=== PATIENT | male | born 1960 | race Caucasian/White ===

== ENCOUNTER 2016-11-02 10:55 | Inpatient (IN) | payer BC, OTHER ==
[~2016-11-02] VITALS: Ht 172.7 cm; Wt 91.6 kg
[~2016-11-02 10:55] MED LIST: Acetaminophen PO; Baclofen PO; DICY20TA28 PO; DULO60CA45 PO; GABA-534 PO; LIDO30AD10 TD; MULT-24 PO; PANT40TA2 PO; PRAV40TA3 PO; TRAZ-147 PO
[2016-11-03] MEDS ORDERED: LORAZEPAM 1 MG TABLET PO PRN ×2 (15:15)
[2016-11-03] MEDS ORDERED: CLONIDINE HCL 0.1 MG TABLET PO PRN (15:15)
[2016-11-03] MEDS ORDERED: DICYCLOMINE HCL 20 MG TABLET PO PRN (15:15)
[2016-11-03] MEDS ORDERED: LORAZEPAM 2 MG/1 ML VIAL IM PRN (15:15)
[2016-11-03] MEDS ORDERED: MAGNESIUM HYDROXIDE 30 ML LIQUID UDC PO PRN (15:15)
[2016-11-03] MEDS ORDERED: MIRALAX 17 GM POWD.PACK PO PRN (15:15)
[2016-11-03] MEDS ORDERED: diphenhydrAMINE 50 MG CAPSULE PO PRN (15:15)
[2016-11-03] MEDS ORDERED: ACETAMINOPHEN 325 MG TABLET PO PRN (15:15)
[2016-11-03] MEDS ORDERED: MAG HYDROX/AL HYDROX/SIMETH 30 ML LIQUID UDC PO PRN (15:15)
[2016-11-03] MEDS ORDERED: THIAMINE HCL 200 MG/2 ML VIAL IM ONE (15:15)
[2016-11-03] MEDS ORDERED: BUPRENORPHINE HCL 2 MG TAB.SUBL SL PRN (15:15)
[2016-11-03 16:38] LABS: *AMPHETAMINE, URINE NEGATIVE (NEGATIVE); *BARBITURATE, URINE NEGATIVE (NEGATIVE); *CANNABINOID, URINE NEGATIVE (NEGATIVE); *COCCAINE, URINE NEGATIVE (NEGATIVE); *OPIATE, URINE NEGATIVE (NEGATIVE); *PHENCYCLIDINE SCREEN,URINE NEGATIVE (NEGATIVE)
[2016-11-03 17:00] VITALS: BP 100/63
--- NOTE | 2016-11-03 17:00 | NUR ---
IV insertion 22G peripheral line inserted into R AC, rapid blood return noted, x 1 attempt, pt tolerated well.
[2016-11-03] MEDS: IV NS 1000 ML 1,000 ML IV SCH (17:12)
[2016-11-03 17:17] LABS: BASOPHILS % (AUTO) 0.3 % (0.0-2.0); EOSINOPHILS # (AUTO) 0.1 K/uL (0.0-0.7); EOSINOPHILS % (AUTO) 1.7 % (0.0-7.0); HEMATOCRIT 41.1 % (40.0-50.0); HEMOGLOBIN 13.8 g/dL (14.0-18.0); LYMPHOCYTES # (AUTO) 2.8 K/uL (0.8-4.8); LYMPHOCYTES % (AUTO) 32.6 % (20.5-51.5); MEAN CORPUSCULAR HEMOGLOBIN 32.6 uug (27.0-31.0); MEAN CORPUSCULAR HGB CONC 34 g/dL (32.0-37.0); MEAN CORPUSCULAR VOLUME 96.6 fL (82.0-92.0); MONOCYTES # (AUTO) 0.3 K/uL (0.1-1.30); MONOCYTES % (AUTO) 4.1 % (0.0-11.0); NEUTROPHILS # (AUTO) 5.3 K/uL (1.8-8.9); NEUTROPHILS % (AUTO) 61.3 % (38.5-71.5); PLATELET COUNT (AUTO) 321 K/uL (150-450); RED BLOOD CELL COUNT(AUTO) 4.25 MIL/uL (4.70-6.10); WHITE BLOOD COUNT (AUTO) 8.5 K/uL (4.0-11.2)
--- NOTE | 2016-11-03 17:30 | NUR ---
Admission Note VS: BP: 100/63 HR:104, SpO2: 97%, RR: 16, Temp: 98.1 Pain: 5/10 Left Leg Height: 5'8" Weight: 202 LB Allergies: LEIGH Pt is a 56 y/o male admitted to [facility] on 11/03/16 at 1530. Pt is under the care of Dr. Connell for alcohol dependence. Pt denies suicidal and homicidal ideations at this time. Pt denies being hospitalized in the past 30 days. Pt denies Chest Pain and SOB. Pt reports using Imodium daily for diarrhea. Upon assessment pt's skin is intact. CIWA 5 upon admission. NKA, A/Ox4 and able to answer questions necessary for the admission process. Pt is Full Code. VS WNL, Regular Diet. Pt denies having seizures. Pt denies having a PCP. Breathing is even and unlabored, SpO2 is 97% on RA. Pt ambulates with a steady gait, pt reports feeling very tired. Pt states experiencing diarrhea for the last 3 weeks likely due to heavy drinking. Pt smokes approximately 1 pack of cigarettes a day.. Dr. Connell has been notified, and has placed client on 120ml/hr 0.9% NA. PT has a 22g IV on left wrist. All needs have been met. Pt has been oriented to the room and the unit. All safety measures in place per hospital policy. Bed in lowest position, side rails up x2 and padded, call-light within reach. Will continue to monitor. Substance Abuse: Alcohol: 350-400ml vodka and 2-3 Nasir's hard lemonade daily for 6 weeks. Last Use: 11/03/16 250ml vodka and 1 Nasir's hard lemonade.
[2016-11-03 17:43] LABS: ALBUMIN 3.9 g/dL (3.4-5.0); BILIRUBIN,TOTAL 0.5 mg/dL (0.2-1.0); POTASSIUM 3.2 mmol/L (3.5-5.1); TOTAL PROTEIN, SERUM 7.8 g/dL (6.4-8.2)
[2016-11-03 17:56] LABS: CREATININE 1.4 mg/dL (0.6-1.3); MAGNESIUM 0.8 mg/dL (1.8-2.4)
[2016-11-03 17:57] LABS: THYROID STIMULATING HORMONE 5.142 mIU/mL (0.358-3.740)
[2016-11-03] MEDS ORDERED: BACLOFEN 20 MG TABLET PO PRN (18:15)
[2016-11-03] MEDS ORDERED: POTASSIUM CHLORIDE 10 MEQ CAPSULE.SA PO ONE (18:15)
[2016-11-03] MEDS ORDERED: MAGNESIUM OXIDE 400 MG TABLET PO ONE (18:15)
[2016-11-03] MEDS: PANTOPRAZOLE SODIUM 40 MG VIAL IV SCH (18:27)
[2016-11-03] MEDS: MAGNESIUM SULFATE/D5W 100 ML IV SCH ×4 (18:30→22:37)
[2016-11-03 18:34] LABS: HIV-1 p24 ANTIGEN NON REACTIVE (NONREACTIVE); HIV-1/2 ANTIBODY NON REACTIVE (NONREACTIVE)
[2016-11-03] MEDS: ONDANSETRON ODT 4 MG TAB.RAPDIS SL PRN (18:38)
--- NOTE | 2016-11-03 18:38 | NUR ---
PRN Zofran Pt reports nausea, administered Zofran, will re-assess.
--- NOTE | 2016-11-03 19:35 | NUR ---
End of Shift Endorsement given to nightshift nurse. Pt is a 56 y/o male admitted to [facility] on 11/03/16 at 1530. Pt has received PRN Zofran for nausea. Pt is under the care of Dr. Connell for alcohol dependence. Pt denies suicidal and homicidal ideations at this time. Pt denies being hospitalized in the past 30 days. Pt denies Chest Pain and SOB. Pt reports using Imodium daily for diarrhea. Upon assessment pt's skin is intact. CIWA 5 upon admission. NKA, A/Ox4 and able to answer questions necessary for the admission process. Pt is Full Code. VS WNL, Regular Diet. Pt denies having seizures. Pt denies having a PCP. Breathing is even and unlabored, SpO2 is 97% on RA. Pt ambulates with a steady gait, pt reports feeling very tired. Pt states experiencing diarrhea for the last 3 weeks likely due to heavy drinking. Pt smokes approximately 1 pack of cigarettes a day.. Dr. Connell has been notified, and has placed client on 120ml/hr 0.9% NA. PT has a 22g IV on left wrist. All needs have been met. Pt has been oriented to the room and the unit. All safety measures in place per hospital policy. Bed in lowest position, side rails up x2 and padded, call-light within reach. Will continue to monitor.
[2016-11-03 20:00] VITALS: BP 94/67
--- NOTE | 2016-11-03 20:00 | NUR ---
Start of Shift Pt is a 56 year old male admitted on 11/03/2016 for ETOH dependence, placed on 5 Ativan taper to be started tomorrow. Pt reported consuming 350-400ml vodka and 2-3 Nasir's hard lemonade daily for 6 weeks. Last intake on 11/03/16 250ml vodka and 1 Nasir's hard lemonade. NKA, regular diet, fall/seizure precautions denies hx of seizures and full code. Denies PMH. Pt has 22g IV on right AC, patient/ intact, flushing well. Magnesium running at 100mls/hr and IV Sodium Chloride 0.9% running at 120ml/hr [id number]. Abdominal US ordered pt is NPO after midnight. Respirations unlabored, denies SOB/Chest pain, skin, wart/moist/intact, pt reported episodes of diarrhea stool culture ordered. Safety measures in place, call light within reach, side rails up x2, bed locked and in low position. Will continue to monitor.
[2016-11-03] MEDS: GABAPENTIN 300 MG CAPSULE PO SCH (20:46)
[2016-11-03] MEDS ORDERED: ONDANSETRON 4 MG/2 ML VIAL IV PRN (21:00)
[2016-11-03] MEDS: METHOCARBAMOL 750 MG TABLET PO PRN (22:48)
--- NOTE | 2016-11-03 22:48 | NUR ---
PRN Administration 2247 CIWA 12 - pt is tremulous, shaky, obvious sweat noted, skin flushed/clammy, reports feeling anxiety, pins/needles sensation, reports headache, and muscle aches throughout body. Ativan 1mg PRN, Motrin 600mg PRN and Robaxin 750mg PRN administered. Safety measures in place, call light within reach, side rails up x2, bed locked and in low position. Will continue to monitor.
[2016-11-03] MEDS: IBUPROFEN 600 MG TABLET PO PRN (22:54)
[2016-11-04] VITALS: BP 99/69
[2016-11-04] MEDS ORDERED: TRAZODONE 50 MG TABLET PO ONE
--- NOTE | 2016-11-04 | NUR ---
Vital Signs - PRN Reassessment/Administration Upon reassessment, Ativan 1mg PRN ineffective, pt presents with moderate/increased tremors/shakiness, obvious sweat/clammy skin, moderate pin/needles sensations, visual sensitivity as reported by pt, reports headache, mild muscle aches. CIWA 15 BP99/69, pulse 108, respirations 20, SpO2 97%, temp 98, muscle aches/pain rated 4/10 Ativan 2mg PRN administered. Trazodone 50mg x1 administered for sleep. Safety measures in place, call light within reach, side rails up x2, bed locked and in low position. Will continue to monitor. Addendum: 11/04/16 at 0341 by RENEA ROBLEDO RN CORRECTION - CIWA 16
[2016-11-04] MEDS ORDERED: TRAZODONE 50 MG TABLET ONE (00:15)
[2016-11-04] MEDS: IV NS 1000 ML 1,000 ML IV SCH ×2 (00:35→09:29)
--- NOTE | 2016-11-04 01:00 | NUR ---
PRN Reassessment Upon reassessment of Ativan 2mg PRN, pt is sleeping, respirations even and unlabored. Unable to reassess CIWA score d/t pt sleeping. Safety measures in place, Will continue to monitor.
--- NOTE | 2016-11-04 04:00 | NUR ---
Pt refused to be woken up for 0400 VS CIWA assessment deferred d/t pt sleeping Safety measures in place, call light within reach, side rails up x2, bed locked and in low position. Will continue to monitor.
--- NOTE | 2016-11-04 07:00 | NUR ---
End of Shift Pt is a 56 year old male admitted on 11/03/2016 for ETOH dependence, placed on 5 Ativan taper to be started today. Pt reported consuming 350-400ml vodka and 2-3 Nasir's hard lemonade daily for 6 weeks. Last intake on 11/03/16 250ml vodka and 1 Nasir's hard lemonade. NKA, regular diet, fall/seizure precautions denies hx of seizures and full code. Denies PMH. Pt has 22g IV on right AC, patient/ intact, flushing well. Magnesium Sulfate/D5W 100ml at 100mls/hr completed 4 bags infused. Pt continues on IV NS 1000ml at 120 mls/hr [id number]. At 2248, pt presented with a CIWA 12 tremulous, shaky, obvious sweat, skin flushed/clammy, reports feeling anxiety, pins/needles sensations, reported headache and muscle aches throughout body Ativan 1mg PRN administered along with Robaxin 750mg PRN, Motrin 600mg PRN. Upon reassessment, Ativan 1mg PRN ineffective, pt presented with moderate/increased tremors/shakiness, obvious sweat/clammy skin, moderate pin/needles sensations, visual sensitivity as reported by pt, CIWA 16. Ativan 2mg PRN administered along with Trazodone 50mg x1 at 0000. Upon reassessment, pt was noted to be sleeping respirations even and unlabored. Abdominal US ordered pt is NPO after midnight. Pt reported episodes of diarrhea stool culture ordered. Pt slept for 6hours, intake of 1043 ml Po and voids x3. Safety measures in place, call light within reach, side rails up x2, bed locked and in low position. Endorsed to day shift nurse.
--- NOTE | 2016-11-04 07:06 | NUR ---
Start of Shift Endorsement received from nightshift nurse. Pt is a 56 y/o male admitted for alcohol dependence. Pt has been placed on a 5 day Ativan taper. Pt is severely withdrawing at this time AEB CIWA 16. Pt has received PRN Ativan x2, Robaxin, Motrin and Trazodone during nightshift. Pt has slept 8 hours. Pt has a 22g IV in the right AC, receiving NS at 120ml/hr. VS WNL, Full Code. PT is alert and oriented x4. Pt is in STABLE condition at this time. Remains compliant with medication and diet regimen. All needs have been met, All safety measures in place per hospital policy. Bed in lowest position, side rails up x2, call-light within reach. Will continue to monitor
[2016-11-04 07:37] LABS: BASOPHILS % (AUTO) 0.3 % (0.0-2.0); EOSINOPHILS # (AUTO) 0.1 K/uL (0.0-0.7); EOSINOPHILS % (AUTO) 1.8 % (0.0-7.0); HEMATOCRIT 33.6 % (40.0-50.0); HEMOGLOBIN 11.3 g/dL (14.0-18.0); LYMPHOCYTES # (AUTO) 1.9 K/uL (0.8-4.8); LYMPHOCYTES % (AUTO) 30.4 % (20.5-51.5); MEAN CORPUSCULAR HGB CONC 34 g/dL (32.0-37.0); MONOCYTES # (AUTO) 0.3 K/uL (0.1-1.30); MONOCYTES % (AUTO) 4.5 % (0.0-11.0); NEUTROPHILS # (AUTO) 3.9 K/uL (1.8-8.9); PLATELET COUNT (AUTO) 199 K/uL (150-450); RED BLOOD CELL COUNT(AUTO) 3.43 MIL/uL (4.70-6.10); RED CELL DISTRIBUTION WIDTH 17.8 % (11.5-14.5); WHITE BLOOD COUNT (AUTO) 6.2 K/uL (4.0-11.2)
[2016-11-04 08:00] VITALS: BP 117/73
[2016-11-04 08:19] LABS: ALBUMIN 2.9 g/dL (3.4-5.0); BILIRUBIN,DIRECT 0.1 mg/dL (0.0-0.2); BILIRUBIN,TOTAL 0.4 mg/dL (0.2-1.0); CALCIUM 8.4 mg/dL (8.5-10.1); CREATININE 1.2 mg/dL (0.6-1.3); MAGNESIUM 2.6 mg/dL (1.8-2.4); PHOSPHOROUS 4.7 mg/dL (2.5-4.9); POTASSIUM 3.9 mmol/L (3.5-5.1); TOTAL PROTEIN, SERUM 5.9 g/dL (6.4-8.2)
[2016-11-04] MEDS ORDERED: TUBERCULIN,PURIF.PROT.DERIV. 5 TU/0.1 ML TEST ID ONE (09:00)
[2016-11-04] MEDS: LORAZEPAM 1 MG TABLET PO SCH ×4 (09:28→21:06)
[2016-11-04] MEDS: THIAMINE HCL 100 MG TABLET PO SCH (09:29)
[2016-11-04] MEDS: PANTOPRAZOLE SODIUM 40 MG VIAL IV SCH (09:29)
[2016-11-04] MEDS: GABAPENTIN 300 MG CAPSULE PO SCH ×3 (09:29→21:06)
[2016-11-04] MEDS: MULTIVITAMINS,THERAPEUTIC TABLET PO SCH (09:29)
[2016-11-04] MEDS: FOLIC ACID 1 MG TABLET PO SCH (09:29)
[2016-11-04] MEDS: LIDOCAINE 5% PATCH TD SCH (09:29)
[2016-11-04] MEDS ORDERED: IV NORMAL SALINE 500 ML IV ONE (14:00)
[2016-11-04] MEDS: DULOXETINE 60 MG CAPSULE.DR PO SCH (14:53)
[2016-11-04] MEDS ORDERED: IV NS 1000 ML 1,000 ML IV PRN (15:00)
[2016-11-04 16:39] VITALS: BP 120/78
[2016-11-04] MEDS: LOPERAMIDE HCL 2 MG CAPSULE PO PRN ×2 (17:16→21:07)
--- NOTE | 2016-11-04 18:41 | NUR ---
End of Shift Endorsement given to nightshift nurse. Pt is a 56 y/o male admitted to [facility] for alcohol dependence. Pt has begun a 5 day Ativan taper. Pt is tolerating the taper and moderately withdrawing AEB COWS 9. Pt has a 22g saline lock in R wrist, pt has received 1500ml of NS during the shift. Pt has not received any PRN medications. Stool sample has been collected and sent to the lab for suspected c-diff. Pt had an abdominal performed in the morning, Dr. Connell is aware of the results. Pt has spent the day in bed sleeping. Pt is alert and oriented x4, responsive to name and touch. Intake: 2590ml, Void x3, BM x1. Remains compliant with medication and diet regimen. All needs have been met, All safety measures in place per hospital policy. Bed in lowest position, side rails up x2, call-light within reach. Will continue to monitor
[2016-11-04 20:00] VITALS: BP 127/83
--- NOTE | 2016-11-04 20:00 | NUR ---
Start of shift note: Patient is a 56 y/o male admitted on 11/03/16 for ETOH dependence. Pt reported consuming 350-400ml vodka and 2-3 Nasir's hard lemonade daily for 6 weeks. Patient is on a regular diet with no known food and drug allergies. Full Code status. Patient denies pas medical history. No seizure history noted. Fall precautions noted. Patient is on a 5-day Ativan taper and tolerating well. Last CIWA is 6. Pt was given PRN Immodium during day shift for diarrhea. Pt has IV access 22 gauge on his right AC with running NS @ 120ml/hr. IV patent and flushes with no problems. No complaints of pain/discomfort at site. Patient is alert & oriented x4. No shortness of breath noted. Respiration even & unlabored. Abdomen soft & non-distended. Slight nausea noted. No episode of vomiting noted. Patient complains of slight body aches and 8/10 headache. Patient noted with bilateral hand tremors. Pt complains of chills & sweating. Mild visual sensitivity noted. Patient denies SI/HI. Safety precautions are in place. Bed locked in lowest position. Both side rails up. Call light within pts reach. Will continue to monitor patient.
[2016-11-04] MEDS: IBUPROFEN 600 MG TABLET PO PRN (21:06)
[2016-11-04] MEDS: TRAZODONE 100 MG TABLET PO SCH (21:07)
--- NOTE | 2016-11-04 23:56 | NUR ---
Ativan 2mg onetime order Patient noted with gross tremors. Pateint appears anxious and restless. Nausea noted. No episode of vomiting. CIWA [address] Connell notified with new orders noted. Ativan 2mg PO administered as ordered. Will reassess in 1 hour. Will continue to monitor. Addendum: 11/05/16 at 0544 by RIA TIERNEY RN vitals signs taken B/P 137/90, MA 97, RR 16, O2Sat 95%
[2016-11-05] VITALS: BP 137/90
[2016-11-05] MEDS ORDERED: LORAZEPAM 1 MG TABLET PO ONE
--- NOTE | 2016-11-05 00:56 | NUR ---
Reassessment Patient appears less anxious with decreased tremors noted. Patient verbalized PRN medication is effective in controlling withdrawals evidenced by decreases in CIWA scores from 11 to 6. Safety precautions are in place. Will continue to monitor patient.
--- NOTE | 2016-11-05 07:05 | NUR ---
Start of Shift Endorsement received from nightshift nurse. Pt is a 56 y/o male admitted for alcohol dependence. Pt has been placed on a 5 day Ativan taper. Pt is moderately withdrawing at this time AEB CIWA 6 at 0100. Pt has received PRN Ativan for CIWA of 12, Imodium for reported diarrhea and Motrin for headache during nightshift. Pt has slept 4 hours, going out to smoke several times during the night. Pt has a 22g IV in the right AC, receiving NS at 125ml/hr, pt has received 500ml NS during the night. VS WNL, Full Code. PT is alert and oriented x4. Pt is in STABLE condition at this time. Remains compliant with medication and diet regimen. All needs have been met, All safety measures in place per hospital policy. Bed in lowest position, side rails up x2, call-light within reach. Will continue to monitor
--- NOTE | 2016-11-05 07:37 | NUR ---
END OF SHIFT NOTE: Pt is stable. Pt still has IV access on right AC with running NS @ 125 cc/hr. IV access patent and flushes easily. Pt had an episode of diarrhea and was given PRN Immodium. No episode noted after medication was given. Pt is in contact isolation for possible C-diff. Contact precaution observed. At 2356, pt started withdrawing with CIWA 11 noted. Ativan 2mg x1 given as ordered and was effective. Pt reported that medication was effective in controlling his withdrawal symptoms as evident by decreased of CIWA scores from 11 to 6. Pt still asleep at this time and vitals remains WNL. Pt slept for a total of 5 hours. Pt consumed 1350ml of fluids. Voided 1x with no bowel movement. All needs attended & met. Safety precautions are in place. Will endorse pt to day shift nurse.
[2016-11-05 08:00] VITALS: BP 109/60
[2016-11-05 08:08] LABS: BASOPHILS % (AUTO) 0.2 % (0.0-2.0); EOSINOPHILS # (AUTO) 0.1 K/uL (0.0-0.7); HEMATOCRIT 30.4 % (40.0-50.0); HEMOGLOBIN 10.3 g/dL (14.0-18.0); LYMPHOCYTES # (AUTO) 1.6 K/uL (0.8-4.8); MEAN CORPUSCULAR HEMOGLOBIN 33.6 uug (27.0-31.0); MEAN CORPUSCULAR HGB CONC 34 g/dL (32.0-37.0); MEAN CORPUSCULAR VOLUME 99.2 fL (82.0-92.0); MONOCYTES # (AUTO) 0.2 K/uL (0.1-1.30); MONOCYTES % (AUTO) 4.3 % (0.0-11.0); NEUTROPHILS # (AUTO) 3.3 K/uL (1.8-8.9); NEUTROPHILS % (AUTO) 63.5 % (38.5-71.5); PLATELET COUNT (AUTO) 165 K/uL (150-450); RED BLOOD CELL COUNT(AUTO) 3.06 MIL/uL (4.70-6.10); RED CELL DISTRIBUTION WIDTH 17.4 % (11.5-14.5); WHITE BLOOD COUNT (AUTO) 5.2 K/uL (4.0-11.2)
[2016-11-05 08:24] LABS: ALBUMIN 2.5 g/dL (3.4-5.0); BILIRUBIN,DIRECT 0.1 mg/dL (0.0-0.2); BILIRUBIN,TOTAL 0.3 mg/dL (0.2-1.0); CREATININE 1.1 mg/dL (0.6-1.3); PHOSPHOROUS 3.6 mg/dL (2.5-4.9); POTASSIUM 3.9 mmol/L (3.5-5.1); TOTAL PROTEIN, SERUM 5.3 g/dL (6.4-8.2)
[2016-11-05] MEDS: GABAPENTIN 300 MG CAPSULE PO SCH ×3 (08:35→20:56)
[2016-11-05] MEDS: DULOXETINE 60 MG CAPSULE.DR PO SCH (08:35)
[2016-11-05] MEDS: THIAMINE HCL 100 MG TABLET PO SCH (08:35)
[2016-11-05] MEDS: LORAZEPAM 1 MG TABLET PO SCH ×3 (08:35→20:56)
[2016-11-05] MEDS: MULTIVITAMINS,THERAPEUTIC TABLET PO SCH (08:35)
[2016-11-05] MEDS: PANTOPRAZOLE SODIUM 40 MG VIAL IV SCH (08:35)
[2016-11-05] MEDS: FOLIC ACID 1 MG TABLET PO SCH (08:35)
[2016-11-05] MEDS: LIDOCAINE 5% PATCH TD SCH (08:58)
[2016-11-05 12:00] VITALS: BP 115/63
[2016-11-05] MEDS: LOPERAMIDE HCL 2 MG CAPSULE PO PRN ×2 (13:32→17:22)
--- NOTE | 2016-11-05 13:32 | NUR ---
PRN Imodium Pt reports having diarrhea, administered Imodium 2mg.
[2016-11-05 14:13] LABS: HCV AB <0.1 s/co ratio (0.0-0.9); HEPATITIS B CORE AB, IgM Negative (Negative); HEPATITIS B SURFACE AG Negative (Negative)
[2016-11-05 16:00] VITALS: BP 120/68
--- NOTE | 2016-11-05 16:30 | NUR ---
IV Discontinued IV discontinued and removed at [address] Connell.
--- NOTE | 2016-11-05 17:22 | NUR ---
PRN Imodium Pt reports experiencing another episode of diarrhea, administered Imodium 4mg per Dr. Connell.
--- NOTE | 2016-11-05 19:02 | NUR ---
End of Shift Endorsement given to nightshift nurse. Pt is a 56 y/o male admitted to [facility] for alcohol dependence. Pt has begun a 5 day Ativan taper. Pt is tolerating the taper and mildly withdrawing AEB COWS 4, CIWA 2 at 1600. IV has been discontinued and removed at [address] Connell. Pt encouraged to take a shower due to experiencing multiple episodes of diarrhea. Educated on hygiene and dangers of skin breakdown. Pt has received Imodium x2 due to diarrhea. Pt reports readiness for sobriety. Participated in groups and activities. Stool sample results are negative for c-diff. Intake: 1142ml, Void x5, BM x5. Pt is alert and oriented x4, responsive to name and touch. Intake: 2590ml, Void x3, BM x1. Remains compliant with medication and diet regimen. All needs have been met, All safety measures in place per hospital policy. Bed in lowest position, side rails up x2, call-light within reach. Will continue to monitor
--- NOTE | 2016-11-05 19:15 | NUR ---
Start of shift note: Patient is a 56 y/o male admitted on 11/03/16 for ETOH dependence. Pt reported consuming 350-400ml vodka and 2-3 Nasir's hard lemonade daily for 6 weeks. Patient is on a regular diet with no known food and drug allergies. Full Code status. Patient denies past medical history. No seizure history noted. Fall precautions noted. Patient is on a 5-day Ativan taper and tolerating well. Last COWS 4 CIWA 2 noted. Pt was given PRN Immodium x2 during day shift for diarrhea. C-diff result came back negative. Contact isolation was discontinued. IV access was also discontinued as ordered. Patient remained stable. Patient is alert & oriented x4. No shortness of breath noted. Respiration even & unlabored. Abdomen soft & non-distended. Bowel sounds active in all four quadrants. Pt c/o of nausea. No episode of vomiting noted. Patient c/o of 5/10 body aches, sweating, chills and mild headache. Pt still noted with bilateral hand tremors. Pt verbalized that and hour ago while in the meeting that he was seeing things in the corner of his eye and thought somebody was talking to him. Pt oriented to reality. Safety precautions are in place. Bed locked in lowest position. Both side rails up. Call light within pts reach. Will continue to monitor.
[2016-11-05 20:00] VITALS: BP 122/83
[2016-11-05] MEDS: IBUPROFEN 600 MG TABLET PO PRN (20:56)
--- NOTE | 2016-11-05 20:56 | NUR ---
PRN Motrin & Zofran Patient complains of 5/10 body aches, mild headache and nausea. No episode of vomiting noted. Patient is restless. No facial grimacing noted. PRN Motrin given as ordered. Will reassess for effectiveness of medication.
[2016-11-05] MEDS: ONDANSETRON ODT 4 MG TAB.RAPDIS SL PRN (20:57)
--- NOTE | 2016-11-05 21:56 | NUR ---
PRN Reassessment PRn medication effective. Pt verbalized relief from pain and improved nausea noted. Pt lying in bed and appears calm and comfortable. Will continue to monitor patient.
[2016-11-05] MEDS: TRAZODONE 100 MG TABLET PO SCH (23:57)
--- NOTE | 2016-11-05 23:57 | NUR ---
late medication administration Patient refused to take Trazodone at 2100 as scheduled. Per pt, he is not yet ready to sleep and he will take it at a later time. Trazodone 100mg administered at this time. Pt is stable and vitals WNL. No s/s of distress noted. Will continue to monitor.
[2016-11-06] VITALS: BP 132/72
[2016-11-06 04:00] VITALS: BP 94/53
[2016-11-06] MEDS: PANTOPRAZOLE SODIUM 40 MG TABLET.DR PO SCH (07:07)
--- NOTE | 2016-11-06 07:13 | NUR ---
END OF SHIFT NOTE: Pt is a 56 y/o male admitted to safely detox from ETOH. Patient is on a 5-day Ativan taper and tolerating well. Pt was given PRN Motrin & Zofran and were effective. Pt reported that medication is effective in controlling withdrawal symptoms by the decrease in COWS from 8 to 6 and CIWA from 8 to 4 at midinight. Pt refused to take Trazodone at 2100 as scheduled and took it at a later time. Per pt he is not ready to go to sleep yet. Closely monitored patient and checked vitals Q4H. Pt remained stable with no significant change in condition noted. Vitals remains WNL. Pt still asleep at this time with no s/s of distress noted. Pt slept for a total of 4 hours. Pt consumed 950 ml of fluids. Voided 2x with no bowel movement. All needs attended & met. Safety precautions are in place. Will endorse pt to day shift nurse.
--- NOTE | 2016-11-06 07:15 | NUR ---
Start of Shift Report from night nurse: pt is 56 y/o male here for Etoh dependence r/t vodka 350ml with Alcohol beverage called "Milk's Hard Lemonade" 2-3 bottles/d x 6 weeks; 5 day Ativan taper ordered. Pt is a full code, regular diet, NKA, fall and seizure precaution ordered. Hhx: Lactose intolerance, Smoker, relapse from last visit here in Sep. V/S stable. Skin is intact.Night nurse recommended to f/u with Dr. Quintero re: Trazodone changed to PRN instead f HS. Last CIWA 5. Pt is in room asleep. Will cont to monitor the pt.
[2016-11-06 08:00] VITALS: BP 140/86
[2016-11-06 08:35] LABS: CALCIUM 8.8 mg/dL (8.5-10.1); MAGNESIUM 1.9 mg/dL (1.8-2.4); PHOSPHOROUS 3.9 mg/dL (2.5-4.9); POTASSIUM 4.3 mmol/L (3.5-5.1)
[2016-11-06] MEDS: THIAMINE HCL 100 MG TABLET PO SCH (09:30)
[2016-11-06] MEDS: GABAPENTIN 300 MG CAPSULE PO SCH ×4 (09:30→21:44)
[2016-11-06] MEDS: LORAZEPAM 1 MG TABLET PO SCH ×4 (09:30→21:44)
[2016-11-06] MEDS: FOLIC ACID 1 MG TABLET PO SCH (09:31)
[2016-11-06] MEDS: MULTIVITAMINS,THERAPEUTIC TABLET PO SCH (09:31)
[2016-11-06] MEDS: DULOXETINE 60 MG CAPSULE.DR PO SCH (09:31)
[2016-11-06] MEDS: LIDOCAINE 5% PATCH TD SCH (09:31)
[2016-11-06 12:00] VITALS: BP 134/86
[2016-11-06] MEDS: ONDANSETRON ODT 4 MG TAB.RAPDIS SL PRN ×2 (12:19→21:44)
--- NOTE | 2016-11-06 12:25 | NUR ---
PRN Medication Administration Pt c/o mild nausea; PRN Zofran 4mg SL given as ordered. Will reassess in 1H.
--- NOTE | 2016-11-06 12:55 | NUR ---
Reassessment Pt is in room eating lunch and denies nausea; Zofran is effective. Will cont. to monitor the pt.
[2016-11-06] MEDS: HYDROXYZINE PAMOATE 25 MG CAPSULE PO PRN (15:12)
[2016-11-06] MEDS: IBUPROFEN 600 MG TABLET PO PRN ×2 (15:12→21:44)
--- NOTE | 2016-11-06 15:15 | NUR ---
PRN Medication Administration Pt is in room very anxious with BP 148/96 HR 100-101, RR 18 and restless legs with pacing and pt c/o CHILDRESS; PRN Ibuprofen 600mg, Vistaril 25mg and Clonidine 0.1mg. Will reassess in 30 minutes -1H during scheduled medication Administration .
[2016-11-06 16:00] VITALS: BP 138/84
[2016-11-06] MEDS ORDERED: LORAZEPAM 1 MG TABLET PO ONE (16:00)
--- NOTE | 2016-11-06 16:20 | NUR ---
Reassessment, New Orders-Labs and Ativan Once Pt is in room with tremors felt, BP new 138/84 HR 99-100, numbness present and decreased anxiety and irritability, CIWA 4; New order for Ativan 1mg ONCE to be given with the 1700H scheduled Ativan 1mg qid ordered. New Orders 11/07/16 for Chem 10, CBC, Fe2+ panel, Vitamin B12 and Folic Acid panel. Will reassess in 1H before dinner.
--- NOTE | 2016-11-06 17:23 | NUR ---
Reassessment-Ativan Pt is in his room awake, A&Ox4, eating dinner in chair and table with no tremors noted, manual Peripheral pulse 88 and no s/sx of Anxiety present; Clonidine, Ativan ONCE with the scheduled is effective. Will cont. to monitor the pt.
--- NOTE | 2016-11-06 19:30 | NUR ---
Start of shift note: Patient is a 56 y/o male admitted on 11/03/16 for ETOH dependence. Pt reported consuming 350-400ml vodka and 2-3 Nasir's hard lemonade daily for 6 weeks. Patient is on a regular diet with no known food and drug allergies. Full Code status. Medical history of Lactose intolerance, Smoker, relapse from last visit here in Sep, Depression, Shingles <1month ago that is not contagious, Obesity, Anxiety, Acute Renal Failure, Hepatostenosis, Insomnia, Cholelithiasis. Fall precautions noted. Patient is on a 5-day Ativan taper and tolerating well. Last CIWA 4 noted. Pt was given PRN Clonidine, Vistaril, Motrin & Zofran and a one time order for Ativan 1mg during day shift. Patient is stable. Patient is alert & oriented x4. No shortness of breath noted. Respiration even & unlabored. Abdomen soft & non-distended. Bowel sounds active in all four quadrants. Pt c/o of nausea. No episode of vomiting noted. Patient c/o of 3/10 body aches, sweating and mild headache. Pt still noted with bilateral hand tremors. Pt noted with mild visual sensitivity. Safety precautions are in place. Bed locked in lowest position. Both side rails up. Call light within pts reach. Will continue to monitor.
--- NOTE | 2016-11-06 19:30 | NUR ---
End of the Shift Report to the night nurse: pt is 56 y/o male here for Etoh dependence r/t vodka 350ml with Alcohol beverage called "Milk's Hard Lemonade" 2-3 bottles/d x 6 weeks; 5 day Ativan taper ordered. Pt is a full code, regular diet, NKA, fall and seizure precaution ordered. Hhx: Lactose intolerance, Smoker, relapse from last visit here in Sep, Depression, Shingles <1month ago that is not contagious and MD aware, Anemia, Obesity, Anxiety, Acute Renal Failure, Hepatostenosis, Insomnia, Cholelithiasis. V/S stable. Skin is intact. PRN: Zofran given at 1220 for nausea, Motrin 600mg at 1300H for CHILDRESS ,Clonidine 0.1mg and Vistaril given at 1300H for anxiety BP 148/96 HR 101. New order for Ativan 1mg ONCE given with the 1700H ordered dose of Ativan 1mg. New Orders for 11/07/16 Chem 10, CBC, Fe2+ panel, Vit. B12 adn Folic Acid. Pt attended group therapy and activities. No hallucinations, delusions or suicidal ideations present. Features symmetrical, PERRLA 3, CHILDRESS noted with PRN Motrin given today. Pt denies chest pain. No SOB present. Pt denies dysuria. Last BM today. No hallucinations, delusions or suicidal ideations present. Endorsed to the night nurse to f/u with On-call Pyschiatrist re: change in the frequency of trazodone since Dr. Quintero was not here today. Last CIWA 4 at 1600H.
[2016-11-06 20:00] VITALS: BP 128/84
[2016-11-06] MEDS: TRAZODONE 100 MG TABLET PO SCH (21:44)
--- NOTE | 2016-11-06 21:44 | NUR ---
PRN administration Pt was complaining of 3/10 body aches, mild headache & nausea. PRN Motrin & Zofran given as ordered. Will continue to monitor.
--- NOTE | 2016-11-06 22:44 | NUR ---
PRN Reassessment Patient verbalized relief from pain & nausea. PRN medication effective. Pt appears calm with no facial grimacing noted. No episode of vomiting noted. Will continue to montitor.
[2016-11-07] MEDS: PANTOPRAZOLE SODIUM 40 MG TABLET.DR PO SCH (07:12)
--- NOTE | 2016-11-07 07:32 | NUR ---
START OF SHIFT Received report from date night caregiver nurse. 56 year old male patient admitted on 11/03/16 for ETOH withdrawals. Pt has been placed on a 5 day Ativan taper and is tolerating well. Pt has hx of depression, shingles, anemia, obesity, anxiety, acute renal failure, insomnia, cholelithiasis and hepatostenosis. Pt reports being lactose intolerant. V/S remain WNL throughout night. 2100 CIWA is 6. PRN Zofran and Motrin administered and effective. Pt remains safe. All needs met at this time. Safety precautions are in place, will continue to monitor.
--- NOTE | 2016-11-07 07:48 | NUR ---
END OF SHIFT NOTE: Pt is a 56 y/o male admitted to safely detox from ETOH. Patient is on a 5-day Ativan taper and tolerating well. Pt was given PRN Motrin & Zofran and were effective. Pt reported that medication is effective in controlling withdrawal symptoms. Last CIWA is 6. Pt was given PRN Motrin & Zofran and was effective. Closely monitored patient and checked vitals Q4H. Pt remained stable with no significant change in condition noted. Vitals remains WNL. Pt alreadry awake at this time with no s/s of distress noted. Pt slept for a total of 6 hours. Pt consumed 1500 ml of fluids. Voided 2x with no bowel movement. All needs attended & met. Safety precautions are in place. Will endorse pt to day shift nurse.
[2016-11-07 08:08] LABS: BASOPHILS % (AUTO) 0.4 % (0.0-2.0); EOSINOPHILS # (AUTO) 0.2 K/uL (0.0-0.7); EOSINOPHILS % (AUTO) 2.2 % (0.0-7.0); HEMATOCRIT 36.3 % (40.0-50.0); HEMOGLOBIN 12.5 g/dL (14.0-18.0); LYMPHOCYTES # (AUTO) 2.8 K/uL (0.8-4.8); LYMPHOCYTES % (AUTO) 39.9 % (20.5-51.5); MEAN CORPUSCULAR HGB CONC 34 g/dL (32.0-37.0); MEAN CORPUSCULAR VOLUME 98.9 fL (82.0-92.0); MONOCYTES # (AUTO) 0.4 K/uL (0.1-1.30); MONOCYTES % (AUTO) 5.6 % (0.0-11.0); NEUTROPHILS # (AUTO) 3.6 K/uL (1.8-8.9); NEUTROPHILS % (AUTO) 51.9 % (38.5-71.5); PLATELET COUNT (AUTO) 239 K/uL (150-450); RED BLOOD CELL COUNT(AUTO) 3.67 MIL/uL (4.70-6.10); RED CELL DISTRIBUTION WIDTH 18.3 % (11.5-14.5)
[2016-11-07 08:16] VITALS: BP 106/65
[2016-11-07 08:45] LABS: FOLIC ACID 11.8 NG/ML (8.6-58.9)
[2016-11-07 08:52] LABS: CALCIUM 9.3 mg/dL (8.5-10.1); CREATININE 1.2 mg/dL (0.6-1.3); MAGNESIUM 1.8 mg/dL (1.8-2.4); PHOSPHOROUS 4.3 mg/dL (2.5-4.9); POTASSIUM 5.1 mmol/L (3.5-5.1)
[2016-11-07] MEDS: LIDOCAINE 5% PATCH TD SCH (09:00)
[2016-11-07] MEDS: LORAZEPAM 1 MG TABLET PO SCH ×3 (09:15→21:14)
[2016-11-07] MEDS: GABAPENTIN 300 MG CAPSULE PO SCH ×4 (09:15→21:14)
[2016-11-07] MEDS: THIAMINE HCL 100 MG TABLET PO SCH (09:15)
[2016-11-07] MEDS: ONDANSETRON ODT 4 MG TAB.RAPDIS SL PRN (09:15)
[2016-11-07] MEDS: MULTIVITAMINS,THERAPEUTIC TABLET PO SCH (09:15)
[2016-11-07] MEDS: FOLIC ACID 1 MG TABLET PO SCH (09:15)
[2016-11-07] MEDS: DULOXETINE 60 MG CAPSULE.DR PO SCH (09:15)
--- NOTE | 2016-11-07 09:16 | NUR ---
PRN ZOFRAN Pt c/o nausea, no emesis noted. PRN Zofran administered as ordered. Will reassess.
--- NOTE | 2016-11-07 10:15 | NUR ---
REASSESSMENT Pt states Zofran was effective. Denies nausea at this time.
[2016-11-07] MEDS: METHOCARBAMOL 750 MG TABLET PO PRN (12:40)
--- NOTE | 2016-11-07 12:41 | NUR ---
PRN ROBAXIN Pt c/o of 5/10 pain that is not relieved by nonpharmacological methods. PRN Robaxin administered as ordered. Will reassess.
[2016-11-07] MEDS ORDERED: LIDOCAINE 5% PATCH TD ONE (12:45)
[2016-11-07 12:46] VITALS: BP 111/76
--- NOTE | 2016-11-07 13:41 | NUR ---
REASSESSMENT Pt states pain decreased to 3/10 and Robaxin was effective.
[2016-11-07] MEDS: CLONIDINE HCL 0.1 MG TABLET PO SCH ×2 (15:03→21:14)
[2016-11-07 16:50] VITALS: BP 112/78
--- NOTE | 2016-11-07 19:10 | NUR ---
Start of Shift Patient is in his room asleep, but easily arousable to verbal stimuli. Breathing even and non labored. No signs of pain or discomfort noted. Patient is a 56 year old male, admitted on 11/03/16 for ETOH Dependence, under the care of Dr. Connell. Patient is currently receiving a 5 day Ativan taper. Patient verbalizes no known allergies, wishes to be full code, following a regular diet, skin is noted in tact, and placed on fall precautions. Past medical History noted as Depression, Anxiety, Anemia, Obesity, Shingles less than one month ago, ARF, Insomnia, Cholelithiasis, and lactose intolerance. Per endorsement, patient was given PRN Robaxin and Zofran with medications noted to be effective. Patient noted with a CIWA of 4 at 1500. Patient was given a routine order for Lidoderm patch to the left upper back and to be removed prior to bedtime. All needs attended to promptly. Will continue plan of care as ordered.
--- NOTE | 2016-11-07 19:19 | NUR ---
END OF SHIFT Endorsed to night warehouse selector nurse. 56 year old male patient admitted on 11/03/16 for ETOH withdrawals. Pt has been placed on a 5 day Ativan taper and is tolerating well. Most recent CIWA is 4. PRN Zofran and Robaxin administered and effective. Pt ambulates with steady gait. Pt attends group activity and socialized with peers. Pt remains safe. All needs met at this time. Safety precautions are in place, will continue to monitor.
[2016-11-07 20:35] VITALS: BP 116/77
[2016-11-07] MEDS: TRAZODONE 100 MG TABLET PO SCH (21:14)
[2016-11-07] MEDS ORDERED: SHARK LIVER OIL/PETROLAT OINT 60 GM TUBE RC PRN (22:45)
[2016-11-08 00:15] VITALS: BP 118/85
[2016-11-08 04:20] VITALS: BP 110/67
[2016-11-08] MEDS: PANTOPRAZOLE SODIUM 40 MG TABLET.DR PO SCH (06:15)
--- NOTE | 2016-11-08 07:09 | NUR ---
End of Shift Patient is in his room asleep, but easily arousable to verbal stimuli. Breathing even and non labored. No signs of pain or discomfort noted. Patient is a 56 year old male, admitted on 11/03/16 for ETOH Dependence, under the care of Dr. Connell. Patient is currently receiving a 5 day Ativan taper. Patient verbalizes no known allergies, wishes to be full code, following a regular diet, skin is noted in tact, and placed on fall precautions. Past medical History noted as Depression, Anxiety, Anemia, Obesity, Shingles less than one month ago, ARF, Insomnia, Cholelithiasis, and lactose intolerance. No PRN Medications administered. All needs attended to promptly. Will continue plan of care as ordered.
[2016-11-08 07:31] LABS: CALCIUM 8.9 mg/dL (8.5-10.1); CREATININE 1.2 mg/dL (0.6-1.3); MAGNESIUM 1.9 mg/dL (1.8-2.4); POTASSIUM 4.3 mmol/L (3.5-5.1)
--- NOTE | 2016-11-08 07:32 | NUR ---
START OF SHIFT Received report from nurse. 56 year old male patient admitted on 11/03/16 for ETOH withdrawals. Pt has been placed on a 5 day Ativan taper and is tolerating well. compliant with treatment plan and medication orders. Most recent CIWA is 0. No PRN medications were needed or administered at night. V/S remain WNL. Pt ambulates with steady gait. Pt attends group activity and socialized with peers. Pt remains safe. Pt slept for 5 hours. All needs met at this time. Safety precautions are in place, will continue to monitor.
[2016-11-08 08:02] VITALS: BP 104/81
[2016-11-08] MEDS: CLONIDINE HCL 0.1 MG TABLET PO SCH ×3 (09:09→20:38)
[2016-11-08] MEDS: DULOXETINE 60 MG CAPSULE.DR PO SCH (09:09)
[2016-11-08] MEDS: METHOCARBAMOL 750 MG TABLET PO PRN (09:09)
[2016-11-08] MEDS: MULTIVITAMINS,THERAPEUTIC TABLET PO SCH (09:09)
[2016-11-08] MEDS: THIAMINE HCL 100 MG TABLET PO SCH (09:09)
[2016-11-08] MEDS: FOLIC ACID 1 MG TABLET PO SCH (09:09)
[2016-11-08] MEDS: LORAZEPAM 1 MG TABLET PO SCH ×2 (09:09→20:38)
[2016-11-08] MEDS: GABAPENTIN 300 MG CAPSULE PO SCH ×4 (09:09→20:38)
[2016-11-08] MEDS: LIDOCAINE 5% PATCH TD SCH (09:10)
--- NOTE | 2016-11-08 09:16 | NUR ---
PRN ROBAXIN PRN Robaxin administered as ordered for 5/10 back pain and muscle aches. Will reassess.
--- NOTE | 2016-11-08 10:16 | NUR ---
REASSESSMENT Pt reports pain decreased to 2/10 and medication was effective.
[2016-11-08 12:56] VITALS: BP 117/74
[2016-11-08] MEDS: IBUPROFEN 800 MG TABLET PO PRN (14:50)
--- NOTE | 2016-11-08 14:50 | NUR ---
PRN MOTRIN Pt c/o increased 8/10 toothache and 5/10 headache not relieved by nonpharmacological methods. PRN Motrin administered as ordered. Will reassess.
--- NOTE | 2016-11-08 15:55 | NUR ---
REASSESSMENT Pt states pain level decreased to 2/10. Pain was effective.
[2016-11-08] MEDS: HYDROXYZINE PAMOATE 25 MG CAPSULE PO PRN (17:04)
--- NOTE | 2016-11-08 17:06 | NUR ---
PRN VISTARIL Pt complains of increased anxiety CIWA is 5. Pt encouraged to verbalize feelings and take deep breaths. PRN Vistaril administered as ordered. Will reassess.
[2016-11-08 17:17] VITALS: BP 132/85
[2016-11-08] MEDS ORDERED: LORAZEPAM 1 MG TABLET PO ONE (17:45)
--- NOTE | 2016-11-08 17:47 | NUR ---
ONE TIME ATIVAN One time 1mg Ativan per MD administered for CIWA 5. Pt complains of increased anxiety, tremors and agitation. Pt states nonpharmacological methods to reduce withdrawal symptoms are ineffective. Will reassess.
--- NOTE | 2016-11-08 18:47 | NUR ---
REASSESSMENT OF ATIVAN Pt reports Ativan was effective, CIWA is now 2. Pt has decreased anxiety, and tremors.
--- NOTE | 2016-11-08 19:15 | NUR ---
Start of Shift Patient Received. Patient is in activities room participating in group activities. Patient is a 56 year old male, admitted on 11/03/16 for ETOH Dependence, under the care of Dr. Connell. Patient is currently receiving a 5 day Ativan taper. Patient verbalizes no known allergies, wishes to be full code, following a regular diet, skin is noted intact, and placed on fall precautions. Past medical History noted as Depression, Anxiety, Anemia, Obesity, Shingles less than one month ago, ARF, Insomnia, Cholelithiasis, and lactose intolerance. Per endorsement, patient was given an extra dose of Ativan 1mg at 1750. Patient was also given PRN Motrin, Robaxin, and Vistaril. Patient noted with a CIWA of 2 at 1850. Patient was given a routine order for Lidoderm patch to the left upper back and to be removed prior to bedtime. All needs attended to promptly. Will continue plan of care as ordered.
--- NOTE | 2016-11-08 19:17 | NUR ---
END OF SHIFT Endorsed to night shift manager nurse. 56 year old male patient admitted on 11/03/16 for ETOH withdrawals. Pt has been placed on a 5 day Ativan taper and is tolerating well. compliant with treatment plan and medication orders. Most recent CIWA is 2. PRN Motrin, Robaxin and Vistaril administered and effective. Pt uses Preparation H cream as needed. V/S remain WNL. Pt ambulates with steady gait. Pt attends group activity and socialized with peers. Pt remains safe. Pt slept for 5 hours. All needs met at this time. Safety precautions are in place, will continue to monitor.
[2016-11-08 20:35] VITALS: BP 135/83
[2016-11-08] MEDS: TRAZODONE 100 MG TABLET PO SCH (20:37)
--- NOTE | 2016-11-08 20:37 | NUR ---
PRN Medication Administered Patient verbalizing increased generalized pain of 6/10. PRN Tylenol administered with routine medications. Will continue to monitor for effectiveness of medication.
[2016-11-09 00:15] VITALS: BP 112/68
--- NOTE | 2016-11-09 00:15 | NUR ---
PRN Medication Reassessment 0015 Patient is in bed sleeping. Breathing even and non labored. No signs of pain or discomfort noted. Patient awakened for Vitals and was able to verbalized pain had subsided. PRN Tylenol noted to be effective. Will continue to monitor.
[2016-11-09 04:53] VITALS: BP 108/69
[2016-11-09] MEDS: IBUPROFEN 800 MG TABLET PO PRN ×3 (04:54→19:36)
--- NOTE | 2016-11-09 05:04 | NUR ---
PRN Medication Administration Patient awakened for vitals. Patient verbalized increased pain of 6/10 due to a toothache. PRN Motrin administered. Will monitor for effectiveness.
[2016-11-09] MEDS: PANTOPRAZOLE SODIUM 40 MG TABLET.DR PO SCH (06:38)
--- NOTE | 2016-11-09 07:08 | NUR ---
End of Shift Patient is in his room sleeping. Breathing even and non labored. No signs of pain or discomfort noted. Patient was given PRN Tylenol with routine medications for pain of generalized body aches and PRN Motrin for toothache. PRN medication noted to be effective. All needs attended to promptly. Will continue plan of care as ordered.
--- NOTE | 2016-11-09 07:10 | NUR ---
Start Of Shift Patient Received from overnight houseperson nurse. Patient is a 56 year old male, admitted on 11/03/16 for ETOH Dependence, under the care of Dr. Connell. Pt is full code regular diet on fall and seizure precautions denies any food or drug allergies. Patient is currently receiving a 5 day Ativan taper tolerating well. Reports PMH of Depression, Anxiety, Anemia, Obesity, Shingles less than one month ago, ARF, Insomnia, Cholelithiasis, and lactose intolerance. Treatment plan tolerated well by the patient as evidenced by pt's last CIWA score of 5 which was taken at 0400. Pt received PRN Motrin and Tylenol for general body aches and tooth pain which were effective per overnight houseperson nurse. Pt has a new scheduled medication Lidoderm patch that's placed on his left upper back and to be removed HS. Pt is currently in his room laying in bed watching TV. All safety measures in place per hospital policy. Bed in lowest position, side rails up x2, call-light within reach. Will continue to monitor and provide support.
[2016-11-09 08:00] VITALS: BP 96/61
[2016-11-09] MEDS: CLONIDINE HCL 0.1 MG TABLET PO SCH ×2 (08:46→20:55)
[2016-11-09 09:00] LABS: CALCIUM 9.3 mg/dL (8.5-10.1); CREATININE 1.1 mg/dL (0.6-1.3); POTASSIUM 4.7 mmol/L (3.5-5.1)
[2016-11-09] MEDS: MULTIVITAMINS,THERAPEUTIC TABLET PO SCH (09:20)
[2016-11-09] MEDS: THIAMINE HCL 100 MG TABLET PO SCH (09:21)
[2016-11-09] MEDS: DULOXETINE 60 MG CAPSULE.DR PO SCH (09:21)
[2016-11-09] MEDS: LIDOCAINE 5% PATCH TD SCH (09:22)
[2016-11-09] MEDS: FOLIC ACID 1 MG TABLET PO SCH (09:22)
[2016-11-09] MEDS: GABAPENTIN 300 MG CAPSULE PO SCH ×4 (09:22→20:55)
[2016-11-09] MEDS ORDERED: LORAZEPAM 1 MG TABLET PO ONE (11:00)
--- NOTE | 2016-11-09 11:08 | NUR ---
PRN MEDICATION Pt c/o toothache rating it 5/10 requested something for relief, non-pharmacological techniques interventions provided x3 and were not effective. PRN Motrin 800mg administered PO, educated pt about s/e of medication and when to contact nurse. all needs met, all safety measures in place, will continue to monitor.
[2016-11-09 12:00] VITALS: BP 100/63
--- NOTE | 2016-11-09 12:08 | NUR ---
PRN REASSESSMENT Upon reassessment medication noted to be effective pt reported a decrease in pain to 2/10. Instructed pt to contact nurse if pain reoccurred. All needs met, all safety measures in place will continue to monitor. PRN REASSESSMENT Upon reassessment medication noted to be effective pt reported a decrease in pain to 2/10. Instructed pt to contact nurse if pain reoccurred. All needs met, all safety measures in place will continue to monitor.
[2016-11-09 16:00] VITALS: BP 132/76
[2016-11-09] MEDS: HYDROXYZINE PAMOATE 25 MG CAPSULE PO PRN (17:03)
--- NOTE | 2016-11-09 17:05 | NUR ---
PRN MEDICATION Pt c/o some anxiety requested something for relief, non-pharmacological techniques interventions provided x3 and were not effective. PRN Vistaril 25mg administered PO, educated pt about s/e of medication and when to contact nurse. All needs met, all safety measures in place, will continue to monitor.
--- NOTE | 2016-11-09 18:05 | NUR ---
PRN REASSESSMENT Upon reassessment medication noted to be effective pt reported a decrease in anxiety. Instructed pt to contact nurse if anxiety reoccurred. All needs met, all safety measures in place will continue to monitor.
[2016-11-09 18:21] LABS: *AMPHETAMINE, URINE NEGATIVE (NEGATIVE); *BARBITURATE, URINE NEGATIVE (NEGATIVE); *CANNABINOID, URINE NEGATIVE (NEGATIVE); *COCCAINE, URINE NEGATIVE (NEGATIVE); *OPIATE, URINE NEGATIVE (NEGATIVE); *PHENCYCLIDINE SCREEN,URINE NEGATIVE (NEGATIVE)
--- NOTE | 2016-11-09 18:59 | NUR ---
End Of Shift Patient is a 56 year old male, admitted on 11/03/16 for ETOH Dependence, under the care of Dr. Connell. Patient is currently receiving 5 day Ativan taper which he has completed pt will [facility]. Reports PMH of Depression, Anxiety, Anemia, Obesity, Shingles less than one month ago, ARF, Insomnia, Cholelithiasis, and lactose intolerance. Treatment plan tolerated well by the patient as evidenced by pt's last CIWA score of 1 which was taken at 1600. Pt received PRN Motrin and Vistaril which were effective upon reassessment pt also received a onetime dose of Ativan 1mg per MD order. Pt participated in some activities and groups. Pt ate all of his meals. Pt remains compliant with the treatment plan. Pt's vital signs within normal limits, A/Ox4, denies chest pain. Respirations even unlabored, lungs clear upon auscultation abdomen soft and non- distended. Pt denies nausea, vomiting and diarrhea. Pt total fluid intake was 1690ml with 4 voids and 1 stool. Safety measures in place, call light within reach. All pertinent information discussed with steward/stewardess night, endorsement given to steward/stewardess night nurse.
--- NOTE | 2016-11-09 19:15 | NUR ---
START OF SHIFT Received 56 year old male patient admitted on 11/03/16 for ETOH dependency. Pt is full code with NKA. He reports a PMHx depression, shingles <1 month ago, anemia, anxiety, ARF, insomnia, hepatostenosis, cholelithiasis, and obesity. He reports drinking 350 mL-400 mL of vodka or 2-3 mikes hard lemonade daily for 6 weeks. Last dose was 2 mikes hard lemonade and 250 mL hard liquor. Pt was started on 5 day Ativan taper on 11/03/16 and tolerated well. Per endorsement, pt is scheduled to be DC tomorrow to [facility]. Pt also received PRN motrin and Vistaril. Pt is alert and oriented x4, breathing is even and unlabored, safety measures in place. Will continue to monitor.
--- NOTE | 2016-11-09 19:36 | NUR ---
PRN MOTRIN Pt complains of headache 5/10. PRN Motrin administered as ordered. Breathing even and unlabored, safety measures in place. Will continue to monitor effectiveness of medication.
[2016-11-09 20:00] VITALS: BP 115/74
--- NOTE | 2016-11-09 20:36 | NUR ---
PRN MOTRIN REASSESSMENT PRN Motrin effective. Pt reports decrease in headache /. Breathing even and unlabored, safety measures in place. Will continue to monitor.
[2016-11-09] MEDS: TRAZODONE 100 MG TABLET PO SCH (20:55)
[2016-11-09] MEDS: METHOCARBAMOL 750 MG TABLET PO PRN (20:55)
--- NOTE | 2016-11-09 20:55 | NUR ---
PRN ROBAXIN Pt complains of muscle aches. PRN Robaxin administered as ordered. Breathing even and unlabored, safety measures in place. Will continue to monitor effectiveness of medication.
[2016-11-09] MEDS ORDERED: Ibuprofen PO (21:22)
[2016-11-09] MEDS ORDERED: Gabapentin PO (21:22)
[2016-11-09] MEDS ORDERED: CLON0.1T14 PO (21:22)
[2016-11-09] MEDS ORDERED: PANT40TA2 PO (21:22)
[2016-11-09] MEDS ORDERED: HYDR-3895 PO (21:22)
--- NOTE | 2016-11-09 21:55 | NUR ---
PRN ROBAXIN REASSESSMENT Pt reports decrease in muscle aches and pain. Observed to be lying comfortably in bed watching TV. Breathing is even and unlabored, safety measures in place. Will continue to monitor.
[2016-11-10] VITALS: BP 119/85
[2016-11-10 04:00] VITALS: BP 110/72
[2016-11-10] MEDS: PANTOPRAZOLE SODIUM 40 MG TABLET.DR PO SCH (06:43)
--- NOTE | 2016-11-10 07:19 | NUR ---
END OF SHIFT Pt remained stable and had uneventful night. He received PRN medications of Motrin and Robaxin d/t complaints of headache and body aches, PRN medications were effective. Pt is schedule to be DC today to [facility]. He slept a total of 4 hrs, Intake: 1380 mL Void: x3 BM: x1 CIWA: 1 at 0400. Pt remains alert and oriented x4, breathing is even and unlabored, safety measures in place. Endorsed to AM shift.
--- NOTE | 2016-11-10 07:25 | NUR ---
Start of shift note Pt was admitted for ETOH dependence. Pt has a PMH of depression, anemia, obesity, aniety, ARF, hepatatenosis, insomnia, cholelithiasis, and lactose intolerance. Pt has completed a 5 day ativan taper without incident. Pt is scheduled to discharge today and states that he feels ready. All needs addressed at this time. Will continue to monitor pt.
[2016-11-10 08:00] VITALS: BP 109/76
[2016-11-10] MEDS: GABAPENTIN 300 MG CAPSULE PO SCH (08:12)
[2016-11-10] MEDS: DULOXETINE 60 MG CAPSULE.DR PO SCH (08:12)
[2016-11-10] MEDS: IBUPROFEN 800 MG TABLET PO PRN (08:12)
[2016-11-10] MEDS: ONDANSETRON ODT 4 MG TAB.RAPDIS SL PRN (08:12)
[2016-11-10 08:13] VITALS: BP 109/76
[2016-11-10] MEDS: CLONIDINE HCL 0.1 MG TABLET PO SCH (08:13)
[2016-11-10] MEDS: FOLIC ACID 1 MG TABLET PO SCH (08:13)
[2016-11-10] MEDS: MULTIVITAMINS,THERAPEUTIC TABLET PO SCH (08:13)
[2016-11-10] MEDS: THIAMINE HCL 100 MG TABLET PO SCH (08:13)
--- NOTE | 2016-11-10 08:15 | NUR ---
PRN administration Pt c/o nausea, pain and muscle aches of 5/10. Administered PRN robaxin, motrin and zofran per pt request. All other needs addressed at this time.
[2016-11-10] MEDS: LIDOCAINE 5% PATCH TD SCH (08:17)
[2016-11-10] MEDS: METHOCARBAMOL 750 MG TABLET PO PRN (08:17)
--- NOTE | 2016-11-10 09:15 | NUR ---
Reassessment Pt states that his nausea has subsided, and that his pain is now a 1/10. Will continue to monitor pt. Pt is comfortable at this time.
--- NOTE | 2016-11-10 10:30 | NUR ---
Discharge note Pt was admitted for ETOH dependence. Pt has a CIWA of 3. VS are WNL. LBM 11/10/16. Pt states that he feels ready for discharge. Pt denies SI/HI. Pt verbalized his understanding of the discharge instructions. Pt has no further complaints at this time. Pt discharge instructions, prescriptions and valuables all given to pt. Pt ID band removed. Pt ambulated off of unit with [employer], left facility via [facility].
== END 2016-11-10 10:30 | disposition other institution (70) | DRG 895 ==
LOC: SRC 11-03 14:50
PROVIDERS: ADMIT Internal Medicine; ATTEND Internal Medicine
PROC: HZ2ZZZZ Detoxification Services for Substance Abuse Treatment (ICD-10-PCS; principal; 2016-11-03)
PROC: HZ31ZZZ Individual Counseling for Substance Abuse Treatment, Behavioral (ICD-10-PCS; 2016-11-04)
PROC: HZ41ZZZ Group Counseling for Substance Abuse Treatment, Behavioral (ICD-10-PCS; 2016-11-06)
DX: F10.220 Alcohol dependence with intoxication, uncomplicated (principal); E87.3 Alkalosis; N17.9 Acute kidney failure, unspecified; B02.29 Other postherpetic nervous system involvement; F33.2 Major depressive disorder, recurrent severe without psychotic features; F10.230 Alcohol dependence with withdrawal, uncomplicated; K70.10 Alcoholic hepatitis without ascites; F11.21 Opioid dependence, in remission; Y90.9 Presence of alcohol in blood, level not specified; Z98.84 Bariatric surgery status; Z81.1 Family history of alcohol abuse and dependence; Z84.0 Family history of diseases of the skin and subcutaneous tissue; E66.9 Obesity, unspecified; Z68.30 Body mass index [BMI] 30.0-30.9, adult; Z85.828 Personal history of other malignant neoplasm of skin; Z86.010 Personal history of colon polyps; E86.0 Dehydration; E86.1 Hypovolemia; E83.42 Hypomagnesemia; E87.6 Hypokalemia; K80.20 Calculus of gallbladder without cholecystitis without obstruction; D53.9 Nutritional anemia, unspecified; Z81.8 Family history of other mental and behavioral disorders; G47.00 Insomnia, unspecified; F17.210 Nicotine dependence, cigarettes, uncomplicated; E87.8 Other disorders of electrolyte and fluid balance, not elsewhere classified; E78.5 Hyperlipidemia, unspecified; E07.81 Sick-euthyroid syndrome; K70.0 Alcoholic fatty liver; L20.9 Atopic dermatitis, unspecified; K21.9 Gastro-esophageal reflux disease without esophagitis; R19.7 Diarrhea, unspecified; F41.9 Anxiety disorder, unspecified; R05 Cough
CPT/HCPCS: 36415; 70030-TC; 71010; 76700; 80307; 82746; 83550; 83690; 83735; 84100; 84443; 85025; 85610; 86592; 86625; 86705; 86803; 87046; 87340; 87806; 89055; A4663; A9150; C9113; G6040-TC; J3411; J3475; J7030; J7040; Q0162